=== PATIENT | female | born 1970 | race Two or more races ===

== ENCOUNTER 2018-02-27 10:00 | Outpatient (CLI) | payer OTHER | END 2018-02-27 10:07 | disposition home or self-care (01) | LOC: RAD 10:00 | DX: M54.2 Cervicalgia (principal) ==

== ENCOUNTER 2019-02-14 08:29 | Outpatient (CLI) | payer OTHER | END 2019-02-14 08:31 | disposition home or self-care (01) | LOC: TOM 08:29 | DX: R10.0 Acute abdomen (principal); K57.33 Diverticulitis of large intestine without perforation or abscess with bleeding ==

== ENCOUNTER 2021-09-27 10:12 | Emergency (ER) | payer OTHER ==
[~2021-09-27] VITALS: Ht 160 cm; Wt 55.8 kg
[2021-09-27] MEDS ORDERED: SYNTHROID112 MCG PO (10:21)
[2021-09-27] MEDS ORDERED: PROGESTERONE200 MG PO (10:22)
== END 2021-09-27 13:03 | disposition home or self-care (01) ==
LOC: ER 10:12
DX: U07.1 COVID-19 (principal)

== ENCOUNTER 2021-09-28 11:00 | Outpatient (CLI) | payer OTHER ==
[~2021-09-28 11:00] MED LIST: PROGESTERONE200 MG PO; SYNTHROID112 MCG PO
== END 2021-09-28 12:00 | disposition home or self-care (01) ==
LOC: ASH CLINIC 11:00
PROVIDERS: ATTEND General Practice
DX: U07.1 COVID-19 (principal)

== ENCOUNTER 2021-11-16 16:58 | Emergency (ER) | payer OTHER ==
[~2021-11-16] VITALS: Ht 160 cm; Wt 55.8 kg
[2021-11-16] MEDS ORDERED: MAGNESIUM200 MG PO (17:12)
== END 2021-11-16 22:49 | disposition home or self-care (01) ==
LOC: ER 16:58
DX: R10.84 Generalized abdominal pain (principal)

== ENCOUNTER 2023-11-06 11:06 | Emergency (ER) | payer OTHER ==
[~2023-11-06] VITALS: Ht 160 cm; Wt 56.2 kg
[~2023-11-06 11:06] MED LIST changes: +MAGNESIUM200 MG PO
[2023-11-06] MEDS ORDERED: KETOROLAC TROMETHAMINE 30 MG VIAL IM STA (12:23)
[2023-11-06] MEDS ORDERED: KETOROLAC TROMETHAMINE 30 MG VIAL ONE (12:48)
== END 2023-11-06 14:58 | disposition home or self-care (01) ==
LOC: ER 11:07
DX: R07.81 Pleurodynia (principal); M51.36 Other intervertebral disc degeneration, lumbar region

== ENCOUNTER 2023-12-19 11:26 | Outpatient (CLI) | payer OTHER | END 2023-12-19 11:52 | disposition home or self-care (01) | LOC: MAMO-SONO 11:26 | DX: N64.4 Mastodynia (principal); Z12.31 Encounter for screening mammogram for malignant neoplasm of breast ==